=== PATIENT | male | born 1985 | race Two or more races ===

== ENCOUNTER 2023-10-03 18:29 | Emergency (ER) | payer MEDICAID ==
[~2023-10-03] VITALS: Ht 165.1 cm; Wt 30.9 kg
[2023-10-03 18:48] VITALS: TEMP 98.1
[2023-10-03 19:30] LABS: BASOPHILS % (AUTO) 0.9 % (0.0-2.0); EOSINOPHILS % (AUTO) 2.2 % (1.0-6.0); HEMATOCRIT 42.1 % (41-53); HEMOGLOBIN 14.3 g/dL (13.5-17.5); LYMPHOCYTES # (AUTO) 3.5 K/uL (1.0-4.8); MEAN CORPUSCULAR HEMOGLOBIN 29.7 pg (26.0-34.0); MEAN CORPUSCULAR VOLUME 88 fL (80-100); MONOCYTES # (AUTO) 0.7 K/uL (0.1-1.0); NEUTROPHILS # (AUTO) 5.7 K/uL (1.8-7.7); NEUTROPHILS % (AUTO) 55.9 % (40.0-70.0); PLATELET COUNT (AUTO) 314 K/uL (150-450); RED BLOOD CELL COUNT(AUTO) 4.81 MIL/uL (4.50-5.90); RED CELL DISTRIBUTION WIDTH 14.8 % (11.5-14.5); WHITE BLOOD COUNT (AUTO) 10.3 K/uL (4.5-11.0)
[2023-10-03 19:35] LABS: ANION GAP 9 mmol/L (8-16); CALCIUM, TOTAL 9.2 mg/dL (8.8-10.5); CARBON DIOXIDE 27 mmol/L (22-29); CHLORIDE 104 mmol/L (98-107); CREATININE 0.71 mg/dL (0.60-1.30); GLOMERULAR FILTR. RATE CALC > 60 mL/min (>60); GLUCOSE,RANDOM 105 mg/dL (70-110); POTASSIUM 3.7 mmol/L (3.5-5.1); SODIUM SERUM 140 mmol/L (136-145); UREA NITROGEN, BLOOD 15 mg/dL (7-18)
[2023-10-03 19:42] LABS: ALANINE AMINOTRANSFERASE 34 U/L (12-78); ALBUMIN 4.1 g/dL (3.4-5.0); ALKALINE PHOSPHATASE 160 U/L (46-116); ASPARTATE AMINOTRANSFERASE 24 U/L (15-37); BILIRUBIN,TOTAL 0.3 mg/dL (0.1-1.0); TOTAL PROTEIN, SERUM 7.4 g/dL (6.4-8.2)
[2023-10-03 21:08] VITALS: BP 137/73; PULSE 57; RESP 18
[2023-10-03] MEDS: CefTRIAXone SODIUM 1 GM/VIAL IM ONE (23:54)
[2023-10-03] MEDS: LIDOCAINE/PF 1% 2 ML VIAL IM ONE (23:54)
[2023-10-03] MEDS: IBUPROFEN 600 MG TABLET PO ONE (23:54)
[2023-10-03] MEDS: ACETAMINOPHEN 500 MG TABLET PO ONE (23:54)
[2023-10-04] MEDS ORDERED: IBUP-1554 PO (00:32)
[2023-10-04] MEDS ORDERED: ACET-66 PO (00:32)
[2023-10-04] MEDS ORDERED: CEPH-558 PO (00:32)
== END 2023-10-04 00:42 | disposition home or self-care (01) ==
LOC: EMS 18:30
DX: L03.115 Cellulitis of right lower limb (principal)
CPT/HCPCS: 99285; 93971; 80053; 85025; 36415; 96372; J0696; J3490